=== PATIENT | female | born 1960 | race Caucasian/White ===

== ENCOUNTER 2022-10-08 13:18 | Outpatient (OUT) | payer OTHER, SELFPAY ==
--- NOTE | 2022-10-08 13:25 | MM_ITS ---
Patient: LELA LEE Exam Date: 10/08/2022 : 1960 Gender:F Ordering : PETR MORALEZ Admission #: [id number] Family : Order #: [id number] CLICK HERE TO VIEW EXAM RADIOLOGY REPORT PROCEDURE: MM TOMOSYNTHESIS SCREENING BI COMPARISON: MG MAMM SCREEN 3D KARMEN CAD, 09/20/2021. INDICATIONS: Screening Calculator Name NCI Breast Cancer Risk Assessment Tool 5 Year Breast Cancer Risk 1.00% Lifetime Breast Cancer Risk 4.60% Personal Breast Cancer No Personal Ovarian Cancer No Treatments None Family Cancers Mother with ovarian cancer at age 40; Mother with uterine, gb cancer at age 40. LOCATION: [facility] BREAST COMPOSITION: Heterogeneously dense,which may obscure small masses. FINDINGS: DIAGNOSTIC CATEGORY 2--BENIGN FINDING: RIGHT BREAST: No significant suspicious finding. Scattered benign-appearing lymph nodes are present. No significant change has occurred. LEFT BREAST: No significant suspicious finding. Scattered benign-appearing lymph nodes are present. No significant change has occurred. RECOMMENDATIONS: ROUTINE MAMMOGRAM AND CLINICAL EVALUATION IN 12 MONTHS. PLEASE NOTE: A NORMAL MAMMOGRAM DOES NOT EXCLUDE THE POSSIBILITY OF BREAST CANCER. A CLINICALLY SUSPICIOUS PALPABLE LUMP SHOULD BE BIOPSIED. Dictated by: Fausto Padron M.D. on 10/09/2022 at 07:56 Approved by: Fausto Padron M.D. on 10/09/2022 at 08:01
== END 2022-10-08 13:19 ==
LOC: MAMMO 13:19
PROVIDERS: PCP Nurse Practitioner; Visit Provider Nurse Practitioner
DX: Z12.31 Encounter for screening mammogram for malignant neoplasm of breast (principal); Z80.41 Family history of malignant neoplasm of ovary; Z80.49 Family history of malignant neoplasm of other genital organs
CPT/HCPCS: 77063; 77067

== ENCOUNTER 2023-04-04 08:41 | Outpatient (OUT) | payer OTHER, SELFPAY ==
[2023-04-04 09:10] LABS: Basophils Absolute Auto 0.1 10^3/uL (0.0-0.1); Basophils Percent Auto 0.9 % (0.2-2.0); Eosinophils Absolute Auto 0.1 10^3/uL (0.0-0.7); Eosinophils Percent Auto 1.6 % (0.9-7.0); Hemoglobin 12.8 g/dL (12.0-16.0); Immature Granulocytes Abs Auto 0.01 10^3/uL (0.00-0.03); Immature Granulocytes Pct Auto 0.1 % (0.0-0.5); Lymphocytes Absolute Auto 1.9 10^3/uL (1.2-3.8); Lymphocytes Percent Auto 27.7 % (20.5-60.0); Mean Corpuscular HGB Conc 30.5 g/dL (29.9-35.2); Mean Corpuscular Hemoglobin 26.7 pg (26.7-34.0); Mean Corpuscular Volume 87.5 fL (81.0-99.0); Mean Platelet Volume 8.9 fL (9.5-13.5); Monocytes Absolute Auto 0.5 10^3/uL (0.3-0.8); Monocytes Percent Auto 7.4 % (1.7-12.0); Neutrophils Absolute Auto 4.2 10^3/uL (1.4-6.5); Neutrophils Percent Auto 62.3 % (43.0-75.0); Platelet Count 387 10^3/uL (150-450); Red Cell Distribution Width 14.3 % (11.0-15.0); White Blood Count 6.7 10^3/uL (4.0-11.0)
[2023-04-04 09:28] LABS: Alanine Aminotransferase 28 U/L (14-59); Albumin Globulin Ratio 1.1; Albumin Level 3.7 g/dL (3.4-5.0); Alkaline Phosphatase 86 U/L (46-116); Anion Gap 10.7; Aspartate Amino Transferase 17 U/L (15-37); BUN Creatinine Ratio 21.9; Bilirubin Total 0.3 mg/dL (0.2-1.0); Calcium 8.8 mg/dL (8.5-10.1); Carbon Dioxide 30.6 mmol/L (21.0-32.0); Chloride 104 mmol/L (98-107); Cholesterol 180 mg/dL (<=200); Estimated GFR (African America >60 (>=60); Estimated GFR (Non-African Ame >60 (>=60); Globulin 3.3 g/dL; Glucose 98 mg/dL (74-106); HDL Cholesterol 36 mg/dL (40-60); Potassium 4.3 mmol/L (3.5-5.1); Sodium 141 mmol/L (136-145); Triglycerides 196 mg/dL (<=150); VLDL CHOLESTEROL 39.2 mg/dL
== END 2023-04-04 08:42 | disposition home or self-care (01) ==
LOC: LAB 08:43
PROVIDERS: PCP Nurse Practitioner; Visit Provider Nurse Practitioner
DX: Z00.00 Encounter for general adult medical examination without abnormal findings (principal)
CPT/HCPCS: 36415; 80053; 80061; 84443; 85025

== ENCOUNTER 2024-02-25 12:52 | Outpatient (OUT) | payer OTHER, SELFPAY ==
--- NOTE | 2024-02-25 13:02 | MM_ITS ---
Patient Name: LELA LEE MR#: [id number] : 1960 Exam Date: 02/25/2024 Ordering Doctor: PETR MORALEZ RADIOLOGY REPORT PROCEDURE: MM TOMOSYNTHESIS SCREENING BI COMPARISON: MG MAMM SCREEN 3D KARMEN CAD, 09/20/2021. MM TOMOSYNTHESIS SCREENING BI, 10/08/2022. INDICATIONS: Screening for malignant neoplasm Calculator Name NCI Breast Cancer Risk Assessment Tool 5 Year Breast Cancer Risk 1.00% Lifetime Breast Cancer Risk 4.40% Personal Breast Cancer No Personal Ovarian Cancer No Treatments None Family Cancers Mother with ovarian cancer at age 40; Mother with uterine, gb cancer at age 40. LOCATION: [facility] BREAST COMPOSITION: The breasts are heterogeneously dense,which may obscure small masses. FINDINGS: DIAGNOSTIC CATEGORY 2--BENIGN FINDING. NO CHANGE FROM COMPARISON. Scattered benign-appearing calcifications are present. Scattered benign-appearing lymph nodes are present. RIGHT BREAST: No significant suspicious finding. LEFT BREAST: No significant suspicious finding. RECOMMENDATIONS: ROUTINE MAMMOGRAM AND CLINICAL EVALUATION IN 12 MONTHS. PLEASE NOTE: A NORMAL MAMMOGRAM DOES NOT EXCLUDE THE POSSIBILITY OF BREAST CANCER. A CLINICALLY SUSPICIOUS PALPABLE LUMP SHOULD BE BIOPSIED. Dictated by: Smith Dela Cruz MD on 02/25/2024 at 14:10 Approved by: Smith Dela Cruz MD on 02/25/2024 at 14:16
--- OUTSIDE RECORDS SUMMARY | 2024-02-25 13:12 | XMS_ITS | CCD ---
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 clinical summary was aggregated from multiple sources. Caution should be exercised in using it in the provision of clinical care. This summary normalizes information from multiple sources, and as a consequence, information in this document may materially change the coding, format and clinical context of patient data. In addition, data may be omitted in some cases. CLINICAL DECISIONS SHOULD BE BASED ON THE PRIMARY CLINICAL RECORDS. [facility] [employer] [facility]. provides no warranty or guarantee of the accuracy or completeness of information in this document.
== END 2024-02-25 12:53 | disposition home or self-care (01) ==
LOC: MAMMO 12:52
PROVIDERS: PCP Nurse Practitioner; Visit Provider Nurse Practitioner
DX: Z12.31 Encounter for screening mammogram for malignant neoplasm of breast (principal); Z80.41 Family history of malignant neoplasm of ovary; Z80.8 Family history of malignant neoplasm of other organs or systems
CPT/HCPCS: 77063; 77067

== ENCOUNTER 2025-02-25 08:59 | Outpatient (OUT) | payer OTHER, SELFPAY ==
--- NOTE | 2025-02-25 | MM_ITS ---
Patient Name: LELA LEE MR#: [id number] : 1960 Exam Date: 02/25/2025 Ordering Doctor: GLENN [facility]REEM[facility] RADIOLOG[facility] REPORT PROCEDURE: MM TOMOSYNTHESIS SCREENING BI COMPARISON: MM TOMOSYNTHESIS SCREENING BI, 02/25/2024. MM TOMOSYNTHESIS SCREENING BI, 10/08/2022. MG MAMM SCREEN 3D KARMEN CAD, 09/20/2021. MG MAMM KARMEN SCRN W CAD DIG, 09/15/2012. INDICATIONS: screening for malignant neoplasm Calculator Name NCI Breast Cancer Risk Assessment Tool 5 Year Breast Cancer Risk 1.10% Lifetime Breast Cancer Risk 4.30% Personal Breast Cancer No Personal Ovarian Cancer No Treatments None Family Cancers Mother with ovarian cancer at age 40; Mother with uterine, gb cancer at age 40. LOCATION: [facility] BREAST COMPOSITION: The breasts are heterogeneously dense, which may obscure small masses. FINDINGS: RIGHT BREAST: No significant suspicious finding. LEFT BREAST: No significant suspicious finding. DIAGNOSTIC CATEGORY 1--NEGATIVE. RECOMMENDATIONS: ROUTINE MAMMOGRAM AND CLINICAL EVALUATION IN 12 MONTHS. Dictated by: Solomon Jones DO on 02/25/2025 at 12:05 Approved by: Solomon Jones DO on 02/25/2025 at 12:06
--- OUTSIDE RECORDS SUMMARY | 2025-02-25 09:04 | XMS_ITS | Clinical Summary ---
Author Organization [employer] [facility] tem Address [facility] [id number] [address] [place] [address] Care Team Providers Care Sock Boarder Name Role Phone Gissell Howard RESEARCH COMPUTING SPECIALIST-PROVIDER RELATIONS MANAGER Primary Care Provider + Allergies No known active allergies Medications MedicationSigDispense QuantityRefillsLast FilledStart DateEnd DateStatus MULTIVIT WITH MINERALS/LUTEIN (MULTIVITAMIN 50 PLUS ORAL) Take by mouth.Active calcium carbonate-vitamin D3 (CALCIUM 500 + D) 500 mg(1,250mg) -200 units per tablet Take 1 tablet by mouth 2 (two) times a day with meals. 180 tablet Active varicella-zoster gE vaccine, PF, (SHINGRIX) 50 mcg/0.5 mL suspension for reconstitution Indications:Need for shingles vaccineInject 0.5 mL into the appropriate muscle See Admin Instructions for 2 doses. 0.5 mL 2Active ferrous sulfate (FeroSuL) 325 (65 FE) MG tablet Indications:Iron deficiency anemia, unspecified iron deficiency anemia typetake 1 tablet by mouth twice a day - WITH MORNING AND EVENING MEALS 60 tablet 5Active levothyroxine (SYNTHROID, LEVOTHROID) 75 MCG tablet Indications:Acquired hypothyroidismTAKE 1 TABLET BY MOUTH IN THE MORNING BEFORE BREAKFAST ON AN EMPTY STOMACH 90 tablet 5Active lovastatin (MEVACOR) 20 mg tablet Indications:Mixed hyperlipidemiaTake 1 tablet (20 mg total) by mouth nightly. 90 tablet 5Active Active Problems ProblemNoted DateDiagnosed DateMicrocytic gfwwfs4204/14/2021Vitamin D deficiency 01/08/2019Asymptomatic /05/2019Annual physical exam01/08/2019Mixed zxplotrggexyhs92/05/2019Iron deficiency wnzgze4801/08/2019Allergic rhinitis 07/08/2018Normal routine physical jxopohjksxt89/08/6999Xnqpzycnjywu10/08/2017 Resolved Problems ProblemNoted DateDiagnosed DateResolved DateAdvice given about COVID-19 virus bmysqojxi85cute non-recurrent frontal oartmvtjj98/02/2020 02/01/2021Infection of nail bed of finger of left hand Encounters DateTypeDepartmentCare JoymRvdrtsfvuro38/28/2025Refill [facility] [address] [place] [address] Pooja Coello, DALILA Mixed hyperlipidemiafrom Last 3 Months Immunizations ImmunizationAdministration DatesNext DueInfluenza, Injectable, quadrivalent (PF) 03/13/2023,03/14/2021,01/20/2020 Family History Medical HistoryRelationNameCommentsDiabetesBrotherCancerFatherHeart disease FatherCancerMotherunknownDiabetesSister 1Hearing lossSister 1DiabetesSister 2 RelationNameStatusCommentsBrotherDeceasedFatherDeceased (Age 89)MotherDeceased (Age 44)Sister 1Sister 2 Social History Tobacco UseTypesPacks/DayYears UsedDateSmoking Tobacco: NeverSmokeless Tobacco: Never Tobacco Cessation:Counseling Given: No Alcohol UseStandard Drinks/WeekCommentsNot Currently0 (1 standard drink = 0.6 oz pure alcohol)very rarelyPHQ-2AnswerDate RecordedTotal Hgrhp3755Childcare AnswerDate UpqbvnvpTkdxektvpEfkfieh90/12/2019EmploymentAnswerDate Recorded YyfxnethmlUqlqlvd42/12/2019Hunger ScreeningAnswerDate RecordedWithin the past 12 months we worried whether our food would run out before we got money to buy more.Never True08/13/2024Within the past 12 months the food we bought just didn't last and we didn't have money to get more.Never True08/13/2024Purpose - LifeAnswerDate RecordedPurpose and direction in ltsvGgpmxsh15/11/2021 CommentsNoSex and Gender InformationValueDate RecordedSex Assigned at BirthNot on fileLegal JhhBykkmo89/06/2015 11:23 AM EDTGender IdentityNot on fileSexual OrientationNot on file Last Filed Vital Signs Vital SignReadingTime TakenCommentsBlood Fjxmyfrg846/8004 10:20 AM EDT Qgboe0594 10:20 AM MORSnlmufscvii77.8 ??C (98.2 ??F)08/13/2024 10:20 AM EDTRespiratory Njbw111808/13/2024 10:20 AM EDTOxygen Uikvpwpbko62%08/13/2024 10:20 AM EDTInhaled Oxygen Concentration--Cyqdql62.6 kg (173 lb 3.2 oz)08/13/2024 10:20 AM TOXWbjfmm237.5 cm (5' 2 )08/13/2024 10:20 AM EDTBody Mass Index31.68 08/13/2024 10:20 AM EDT Plan of Treatment DateTypeDepartmentCare Team (Latest Contact Info)Gukjfqyuwgl52/16/2026 9:20 AM EDTOffice Visit [facility] [address] [place] [address] Gissell Howard, RESEARCH COMPUTING SPECIALIST-PROVIDER RELATIONS MANAGER [address] [place] [address] Health MaintenanceDue DateLast DoneCommentsDTaP,Tdap and Td Vaccines (1 - Tdap) 07/29/1979Influenza Khnxgnr38/01/24088605/16/2023, 03/13/2023, 03/14/2021, Additional history zftzxdNkcztljax66, 10/08/2022, 09/20/2021, Additional history existsAdult BMI Follow Up Plan/dult BMI Odltjfeee96/02/2025Depression Bmtfmjwfq32/02/2025Tobacco Oysmmljvb23/4710Bhspswwiahw56/14/203207/, 11/16/2021, 11/02/2009Zoster (Shingles) HbzutvhIpguwoeym43/22/2024, 08/07/2023OVID-19 UzohovhAqtmjjiap10/11/2024, 03/13/2023, 05/20/2021, Additional history exists Medical Devices Not on file Procedures Procedure NamePriorityDate/TimeAssociated DiagnosisCommentsMAMM SCREENING BILATERAL W WKGPgoacmi88/22/2024 3:38 PM EDT Encounter for screening mammogram for malignant neoplasm of breast [employer] VLXCIGENNQWRtlvvcw37/14/2022 6:14 AM EDT from Last 3 Months or Most Recently Relevant to Health Maintenance Results * Mammography screening bilateral with CAD (02/25/2024 3:38 PM EDT)Anatomical RegionLateralityModalityBreastBilateralMammography Narrative Authorizing ProviderResult TypeResult StatusValeshakira Mckeon APRN-CNPIMG MAMMOGRAPHY ORDERABLESFinal Result * Colonoscopy Report (11/16/2021 6:14 AM EDT)Specimen (Source)Anatomical Location / LateralityCollection Method / VolumeCollection TimeReceived Time Narrative SYSTEMGENERATED, DOCUMENTATION - 11/16/2021 6:14 AM EDT This order has been auto-finalized for image and report archival in PACs. *For full report details, please reach out to your physician. ??Effective 09/20/20 this image will be visible to you in MyChart.* Authorizing ProviderResult TypeResult StatusMicedna Carson DOIMG OR IMG ORDERABLESFinal Result from Last 3 Months or Most Recently Relevant to Health Maintenance Insurance Care Teams Team MemberRelationshipSpecialtyStart DateEnd Date Gissell Howard, RESEARCH COMPUTING SPECIALIST-PROVIDER RELATIONS MANAGER [address] [place] [phone] PCP - GeneralFamily Medicine11/05/24
--- OUTSIDE RECORDS SUMMARY | 2025-02-25 09:04 | XMS_ITS | Clinical Summary ---
Author Organization [facility] Address [address] [place] [address] Phone Care Team Providers Care Manager Supply Chain Planning Name Role Phone Unavailable Primary Care Provider Unavailabl e Encounters DateTypeDepartmentCare TblsEtpnwtzqwcx22/26/2025Lab Requisition [facility] [address] [place] [address] 01/29/2025Lab Requisition [facility] [address] [place] [address] Kanchan Ordoñez MD Bone marrow donor01/28/2025Lab Requisition [facility] [address] [place] [address] Kanchan Ordoñez MD Bone marrow donorfrom Last 3 Months Social History Tobacco UseTypesPacks/DayYears UsedDateSmoking Tobacco: Never Assessed CommentsUnknownSex and Gender InformationValueDate RecordedSex Assigned at Not on fileLegal KycCdzwbj02/16/2025 4:41 PM EDTGender IdentityNot on fileSexual OrientationNot on file Plan of Treatment Health MaintenanceDue DateLast DoneCommentsCT Dibybdpheiob21/25/1961Colonoscopy 1960olorectal Cancer Hvommnboe73/25/1961FIT-DNA (Cologuard)1960FIT 1960HIV Yxcqkqpxu70/25/1961Lipid Panel1960 7837Gbkdfoycobhiq29/25/1961 Yearly Adult Qewidwmz20/25/1961MMR Vaccines (1 of 1 - Standard series)1961 Hepatitis C Sbpjilpmd64/25/1979Cervical Cancer Wulafcnbn94/25/1982HPV/Cotest 1981Pap Smear1981DTaP/Tdap/Td Vaccines (1 - Tdap)1982Mammogram 2000Pneumococcal Vaccine (1 of 1 - PCV)2010Zoster Vaccines (1 of 2) 2010Influenza Vaccine (#1)2024OVID-19 Vaccine (1 - 2024- season) 2025RSV High Risk: (Elderly (60+) or Population) (1 - 1-dose 75+ series)07/29/2035HIB VaccinesAged OutNo longer eligible based on patient's age to complete this topicHPV VaccinesAged OutNo longer eligible based on patient's age to complete this topicHepatitis A VaccinesAged OutNo longer eligible based on patient's age to complete this topicHepatitis B VaccinesAged OutNo longer eligible based on patient's age to complete this topicIPV VaccinesAged OutNo longer eligible based on patient's age to complete this topicMeningococcal VaccineAged OutNo longer eligible based on patient's age to complete this topic Rotavirus VaccinesAged OutNo longer eligible based on patient's age to complete this topic Procedures Procedure NamePriorityDate/TimeAssociated DiagnosisCommentsHLA DNA TYPE PANEL Dwegrcs9601/28/2025 12:00 AM EDT Bone marrow donor from Last 3 Months Results * HLA DNA Type Panel (01/28/2025 12:00 AM EDT)ComponentValueRef RangeTest Method Analysis TimePerformed AtPathologist SignatureHLA-A,B,C High Resolution Typing 01/29/2025 2:44 PM EDTUH HLA LABHLA-DRB1 High Resolution Elfgkt2701/29/2025 2:44 PM EDTUH HLA LABHLA-DQB1 High Resolution Nbiwka1701/29/2025 2:44 PM EDTUH HLA LABHLA-DPB1 High Resolution Gvmmvt3701/29/2025 2:44 PM EDTUH HLA LABHLA Results See Family HLA Type Report for louis mancuso01/29/2025 2:44 PM EDTUH HLA LAB Specimen (Source)Anatomical Location / LateralityCollection Method / Volume Collection TimeReceived TimeBloodVenous blood specimen / Xfbrivb5301/28/2025 01/29/2025 2:37 PM EDT Narrative HLA LAB - 01/29/2025 2:44 PM EDT Test performed at: [facility], 6th Floor [id number] [place] [address] Test performed at: [facility], 6th Floor [id number] [id number] Authorizing ProviderResult TypeResult StatusRechristine TONEY BLOOD ORDERABLESFinal ResultPerforming OrganizationAddressCity/State/ZIP CodePhone Number [facility] [address] [id number] from Last [address] [employer] [address] [employer] [place] [phone] [place] [address] [place] [address] [place] [address]
--- OUTSIDE RECORDS SUMMARY | 2025-02-25 09:06 | XMS_ITS | CCD ---
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 Comment on above:Performed By: #### CMP #### [facility] [address] [address] [address] Iris BriggsProtein [Mass/Vol]6.8 g/dLNormal6.1-8.2[facility] Comment on above:Performed By: #### CMP #### [facility] [address] [place] [address] Dr. Iris BriggsSodium [Moles/Vol]136 mmol/LCritically njy462-537Cjd [facility] HospitalComment on above:Performed By: #### CMP #### [facility] [address] [place] [address] Dr. Iris Christiansen nitrogen [Mass/Vol]9.0 mg/dLNormal7.0-17.0The [facility] HospitalComment on above:Performed By: #### CMP #### [facility] [address] [place] [address] Dr. Iris Christiansen nitrogen/Creatinine [Mass ratio]13.8 mg/mgNormalThe [facility] HospitalComment on above:Performed By: #### CMP #### [facility] [address] [place] [address] Dr. Iris Adams AUTO DIFFon 19-10-8396EUOC #0.1 103/ulNormal0.0-0.1The [facility] HospitalComment on above:Performed By: #### CBC #### [facility] [address] [place] [address] Dr. Iris BriggsBasophils/100 WBC (Bld)0.8 %Normal0.2-2.0[facility] Comment on above:Performed By: #### CBC #### [facility] [address] [place] [address] Dr. Iris Aldana #0.1 103/ulNormal0.0-0.7The [facility] HospitalComment on above: Performed By: #### CBC #### [facility] [address] [place] [address] Dr. Iris Wootenosinophils/100 WBC (Bld)1.7 %Normal0.9-7.0[facility] Comment on above:Performed By: #### CBC #### [facility] [address] [place] [address] Dr. Iris Wootenrythrocyte distribution width (RBC) [Ratio]18.1 %Critically high 11.0-15.0The [facility] HospitalComment on above:Performed By: #### CBC #### [facility] [address] [place] [address] Dr. Iris BriggsHematocrit (Bld) [Volume fraction]31.2 %Critically low36.0-48.0 The [facility] HospitalComment on above:Performed By: #### CBC #### [facility] [address] [place] [address] Dr. Iris BriggsHemoglobin (Bld) [Mass/Vol]8.7 g/dLCritically low12.0-16.0The [facility] HospitalComment on above:Performed By: #### CBC #### [facility] [address] [place] [address] Dr. Iris BriggsIG #0.03 10e3/ulNormal0.00-0.03The [facility] HospitalComment on above:Performed By: #### CBC #### [facility] [address] [place] [address] Dr. Iris Saxena %0.5 %Normal0.0-0.5The [facility] HospitalComment on above: Performed By: #### CBC #### [facility] [address] [place] [address] Dr. Iris Singh #1.4 103/ulNormal1.2-3.8The [facility] HospitalComment on above:Performed By: #### CBC #### [facility] [address] [place] [address] Dr. Iris Breenmphocytes/100 WBC (Bld)23.4 %Opxpao88.5-60.0The [facility] HospitalComment on above:Performed By: #### CBC #### [facility] [address] [place] [address] Dr. Iris ReneUAL DIFF REQNONormalThe [facility] HospitalComment on above: Performed By: #### CBC #### [facility] [address] [place] [address] Dr. Iris Rangel (RBC) [Entitic mass]20.0 pgCritically low26.7-34.0The [facility] HospitalComment on above:Performed By: #### CBC #### [facility] [address] [place] [address] Dr. Iris CoeHC (RBC) [Mass/Vol]27.9 g/dLCritically low29.9-35.2The [facility] HospitalComment on above:Performed By: #### CBC #### [facility] [address] [address] [address] Iris CoeV (RBC) [Entitic vol]71.9 fLCritically low81.0-99.0The [facility] HospitalComment on above:Performed By: #### CBC #### [facility] [address] [place] [address] Dr. Iris Bosch #0.4 103/ulNormal0.3-0.8The [facility] HospitalComment on above:Performed By: #### CBC #### [facility] [address] [place] [address] Dr. Iris Wintersocytes/100 WBC (Bld)7.0 %Normal1.7-12.0[facility] Comment on above:Performed By: #### CBC #### [facility] [address] [place] [address] Dr. Iris Cortes #4.0 103/ulNormal1.4-6.5The [facility] HospitalComment on above:Performed By: #### CBC #### [facility] [address] [place] [address] Dr. Iris Sequeirautrophils/100 WBC (Bld)66.6 %Laueyv87.0-75.0The [facility] HospitalComment on above:Performed By: #### CBC #### [facility] [address] [place] [address] Dr. Iris Orrlet mean volume (Bld) [Entitic vol]9.1 fLCritically low 9.5-13.5The [facility] HospitalComment on above:Performed By: #### CBC #### [facility] [address] [place] [address] Dr. Iris LimaT516 103/ulCritically zxqf905-978Acv [facility] HospitalComment on above:Performed By: #### CBC #### [facility] [address] [address] [address] Iris BriggsRBC4.34 106/ulNormal4.20-5.40[facility] CenterCommunson healthcare [facility] on above:Result Comment: Microcytosis 3+ Hypochromasia 3+ Anisocytosis 2+Performed By: #### CBC #### [facility] [address] [address] [address] Iris BriggsWBC6.0 103/ulNormal4.0-11.0The [facility] HospitalComment on above: Performed By: #### CBC #### [facility] [address] [place] [address] Dr. Iris BriggsGLYCOHEMOGLOBIN A1Con 86-15-2255RDS RECOMMENDATIONADA THERAPEUTIC TARGET 6.0 - 7.0 ACTION SUGGESTED > 7.0Ad[facility] County HospitalComment on above:Performed By: #### A1C #### [facility] [address] [place] [address] Dr. Iris BriggsGlucose [Mass/Vol]126 mg/dLNoFostoria City HospitalComment on above:Performed By: #### A1C #### [facility] [address] [place] [address] Dr. Iris BriggsHbA1c (Bld) [Mass fraction]6.0 %Normal<=6.0[facility] Comment on above:Performed By: #### A1C #### [facility] [address] [place] [address] Dr. Iris BriggsLIPID PROFILEon 30-38-6406WPBD-HDL RATIO NORMSEE BELOWAdams County HospitalComment on above:Result Comment: 3.3 - 4.4 LOW RISK 4.4 - 7.1 AVERAGE RISK 7.1 - 11.0 MODERATE RISK >11.0 HIGH RISKPerformed By: #### LIPID, TSH #### [facility] [address] [place] [address] Dr. Iris BriggsCholesterol [Mass/Vol]163 mg/dLNormal<=200The [facility] Comment on above:Performed By: #### LIPID, TSH #### [facility] [address] [place], [place] [address] Dr. Iris BriggsCholesterol in HDL [Mass/Vol]40 mg/dLAdams County Hospital Comment on above:Performed By: #### LIPID, TSH #### [facility] [address] [address] [address] Iris BriggsCholesterol in LDL [Mass/Vol]100.2 mg/dLAdams County HospitalComment on above:Performed By: #### LIPID, TSH #### [facility] [address] [place] [address] Dr. Iris Silvestreesterreno.total/Cholesterol in HDL [Mass ratio]4.1 {ratio} NormalUniversity Hospitals Cleveland Medical CenterComment on above:Performed By: #### LIPID, TSH #### [facility] [address] [place] [address] Dr. Iris Brown NORMAL> or = 60 mg/dl - LOW CARDIOVASCULAR RISK <40 mg/dl - HIGH CARDIOVASCULAR RISKNoFostoria City HospitalComment on above:Performed By: #### LIPID, TSH #### [facility] [address] [place] [address] Dr. Iris Vazquez CALC NORMALSEE BELOWAdams County HospitalComment on above:Result Comment: <100 mg/dl OPTIMAL 100 - 129 mg/dl NEAR OR ABOVE OPTIMAL 130 - 159 mg/dl BORDERLINE HIGH 160 - 189 mg/dl HIGH >190 mg/dl VERY HIGH Performed By: #### LIPID, TSH #### [facility] [address] [place] [address] Dr. Iris BriggsTriglyceride [Mass/Vol]114 mg/dLNormal<=150[facility] Comment on above:Performed By: #### LIPID, TSH #### [facility] [address] [place] [address] Dr. Iris BriggsVLDL CALC22.8 mg/dLNoFostoria City HospitalComment on above: Performed By: #### LIPID, TSH #### [facility] [address] [place] [address] Dr. Iris Wilburn 15-64-5847IKR9.095 uIU/mLNormal0.470-4.680[facility] CenterComment on above:Performed By: #### LIPID, TSH #### [facility] [address] [id number] Iris Hodges [facility] SystemComment on above: Result Comment: <0.34 UIU/ml HYPERTHYROID 0.34-5.60 UIU/ml EUTHYROID >5.60 UIU/ml HYPOTHYROIDPerformed By: #### LIPID, TSH #### [facility] [address] [place], [place] [address] Dr. Iris BriggsXR wrist RT min 3V*on 89-94-2725MK wrist RT min 3V*[facility] [address] [place] [address] XRay Report Signed Patient: Alejandra Lee MR#: [id number] : 1960 Acct:[id number] Age/Sex: 60 / F ADM Date: 01/25/21 [facility] Attending Dr: Jennifer HARRISON Ordering Provider: Jennifer HARRISON Date of Service: 01/25/21 XR/XR elbow RT min 3V*: RIGHT ARM PAIN ([id number]) XR/XR forearm RT 2V*: RIGHT ARM PAIN ([id number]) XR/XR wrist RT min 3V*: RIGHT ARM PAIN ([id number]) XR/XR hand RT min 3V*: RIGHT ARM [...] Ken Martin M.D.01/25/2021 5:08 PM Dictation Location: [place] [address] Transcribed By: [facility] 01/25/21 170 Dictated By: Ken Martin MD 01/25/211657 Signed By: 01/25/211707NoWexner Medical Center Vital Signs Date TimeVital SignValuePerforming RooklxqxkFsyoxspg32-96-5394 10:20-0400Body ecjfux640.5 cmValeshakira Mckeon JASONNORTH [facility]AMS [facility] Work Phone: [facility] [employer] Mwkhds26-45-3049 10:20-0400Body mass index (BMI) [Ratio]31.68 kg/j3NrcrachPetr Mckeon SPRAYER MACHINENORTH ADAMS REGIONAL HOSPITAL Work Phone: [facility] Kucsfa05-60-3019 10:20-0400Body psalxyxgqwv71.2 [degF]Petr Mckeon SPRAYER MACHINENORTH ADAMS [facility]ION[facility]PITAL Work Phone: [facility] [employer] Qsnuyt75-42-4518 10:20-0400Body qnidnn66.56 kgPetr Mckeon SPRAYER MACHINENORTH ADAMS [facility] Work Phone: [facility] [employer] Sykerj90-55-1139 10:20-0400Diastolic blood mm[Hg]Petr Mckeon SPRAYER MACHINE-LOOP PULLER Work Phone: [facility] [employer] Vqjwdo49-07-8184 10:20-0400Heart rate 97 /minPetr Mckeon SPRAYER MACHINE-[employer]OP P[employer]ER Work Phone: [facility]04-10-2025 10:20-0400 Respiratory rate18 /minPetr Mckeon SPRAYER MACHINE-[employer]OP P[employer]ER Work Phone: [facility]04-10-2025 10:20-9344ExJ1% (BldA) [Mass fraction]97 %Petr Mckeon SPRAYER MACHINE[employer]OP P[employer]ER Work Phone: [facility] [employer] Trnufq68-79-4315 10:20-0400Systolic blood ltrestat120 mm[Hg]Petr Mckeon APRN-LOOP PULLER Work Phone: [facility]06-20-2024 23:04-0400Body ukahyfoojsg19.88 [degF]Royainn Dokken [address]06-20-2024 23:04-0400 Diastolic blood uganjmpu66 mm[Hg]Nicoylinn Dokken [address] [place], [place] 3787706-20-2024 23:04-0400Heart fhjt919 /minNicoylinn Dokken [address] [place], [place] [address]87706-20-2024 23:04-0400 Respiratory rate18 /minNcioylinn Dokken [address] [place], [place] 3787706-20-2024 23:04-5375NtW0% (BldA) [Mass fraction]98 %Kaylinn Dokken [address] [place], [place] [address]87706-20-2024 23:04-0400 Systolic blood vowonlbh886 mm[Hg]Kaylinn Dokken [address] [place], [place] [address]6-20-2024 22:10-0400Body damdonsbrsr06.24 [degF]Kaylinn Dokken [address] [place], [place] [address]6-20-2024 22:10-0400 Diastolic blood pcmzvytu14 mm[Hg]Kaylinn Dokken [address] [place], [place] [address]6-20-2024 22:10-0400Heart qnbu849 /minKaylinn Dokken [address] [place], [place] [address]6-20-2024 22:10-0400 Respiratory rate18 /minKaylinn Dokken [address] [place], [place] 499[address]6-20-2024 22:10-6344LbC6% (BldA) [Mass fraction]96 %Kaylinn Dokken [address] [place], [place] 499[address]6-20-2024 22:10-0400 Systolic blood dcuuabil897 mm[Hg]Kaylinn Dokken [address] [place], [place] [address]6-20-2024 21:55-0400Body ttbcajaqims13.24 [degF]Kaylinn Dokken [address] [place], [place] [address]6-20-2024 21:55-0400 Diastolic blood pqflorse15 mm[Hg]Kaylinn Dokken [address] [place], [place] [address]6-20-2024 21:55-0400Heart mxzh303 /minKaylinn Dokken [address] [place], [place] [address]6-20-2024 21:55-0400 Respiratory rate18 /minKaylinn Dokken [address] [place], [place] [address]6-20-2024 21:55-7873SzZ6% (BldA) [Mass fraction]95 %Kaylinn Dokken [address] [place], [place] [address]6-20-2024 21:55-0400 Systolic blood ydvtnwdu201 mm[Hg]Irving Aguirre [facility] Encounters Encounter DateEncounter TypeCare ProviderFacilityStart: 12-31-2024 End: 71-23-5054QtaaedJayg Cooper [facility] HOSPITALProMedica Physicians Internal Medicine - Family MedicineComment on above:Mixed hyperlipidemiaStart: 10-01-2024 End: 71-31-1275WbfcsfKfugnsqLeeanne CHAO Work Phone: [facility] Internal Medicine - Family MedicineComment on above:Acquired hypothyroidismStart: 08-13-2024 End: 46-36-5274xjnwaajjngNKSCSHP J Wright-[facility]terson Medical Centertart: 26-57-0141Pvkpxezuq for general adult medical examination without abnormal findingsThe Surgical Hospital at Southwoodstart: 08-13-2024 End: 05-99-6271Kgnjpvr encounter procedureValeshakira CHAO Work Phone: [facility] Work Phone: Start: 08-13-2024 End: 91-90-6451Fcpwrwdw preventive med est patient 40-64yrsPetr CHAO Work Phone: [facility] Internal Medicine - Family MedicineComment on above:Annual physical exam (Primary Dx); Acquired hypothyroidism; Mixed hyperlipidemia; Blood tests for routine general physical examination; Iron deficiency anemia, unspecified iron deficiency anemia type; Encounter for screening mammogram for malignant neoplasm of breastStart: 08-13-2024 End: 74-51-6890Pscgnwrl examinationPetr CHAO Work Phone: [facility] HospitalM[employer] Hospitaltart: 08-13-2024 End: 82-90-1005ammdkzgurxIRSWSCW J CASTILLOTanner [facility] P[facility] Start: 04-27-2024 End: 47-16-9997BdkdtnBitrx Postell [facility] HospitalMedica Physicians Internal Medicine - Family MedicineComment on above:Iron deficiency anemia, unspecified iron deficiency anemia typeStart: 02-26-2024 End: 37-15-5806Apzwpzraf encounterBeacmc healthcare system glenbeigh ForMercy Health – The Jewish HospitalProMedica Physicians Internal Medicine - Family MedicineStart: 01-08-2024 End: 47-74-4941VhxreqWfjqe Daniela [facility] Internal Medicine - Family MedicineComment on above:Iron deficiency anemia, unspecified iron deficiency anemia type; Acquired hypothyroidism; Mixed hyperlipidemiaStart: 10-24-2023 End: 14-11-5380Mtmtpbxzq department patient visitIrving Aguirre [facility] Start: 09-20-2021 End: 65-70-6082dqxkmoyhmvQUNSPZI CASTILLOFacility:Q4Jxgtq: 89-97-0004Swtxosjqz for general adult medical examination without abnormal findingsADELSHAKIRA MCKEON [facility] Hospitaltart: 04-26-2021 End: 24-86-5632vivpwhbucyCIIXHAL CASTILLOFacility:O6Tkaoy: 04-26-2021 End: 20-73-0383Rshxsbair for general adult medical examination without abnormal findingsVALERIE CASTILLOFacility:Q1Hqunj: 03-18-2021 End: 35-84-4724kymenkdqbdUJSESXB CASTILLOFacility:Z7Lujog: 91-57-3843Wpuzktc encounter procedureMisty Daniela [facility] Pardeetart: 01-08-2019 Encounter for general adult medical examination without abnormal findingsHCA [facility]ulatory PPGStart: 84-69-0139Rmrwvint examinationMisty Daniela [facility] Procedures DateProcedureProcedure DetailPerforming ClinicianStart: 40-61-7207Jafez depression screening assessmentValeshakira Mckeon APRNNORTH ADAMS REG[facility]AL [facility]OSP[facility] Work Phone: Start: 09-09-5208DhjttkdiqsqGwirhkt Forrider CMAStart: 73-34-0115Kytav depression screening assessmentMisty Daniela CMAStart: 76-92-3249JyjcykhxcgsMwreu Daniela CMAStart: 49-64-6929IednxernsbkWdjck Daniela [employer]FETERIA CASHIER Plan of Treatment DateCare ActivityDetailAuthorStart: 11-34-5143Hpmxfcwmt for malignant neoplasm of colonColonoscopyTrinity Health System East Campus SystemStart: 08-19-2025 End: 13-86-8852Vzlncxz encounter /16/2026 9:20 AM EDT Office Visit [facility] [address] [place] [address] Gissell Howard, SPRAYER MACHINE-LOOP PULLER [address] [place] [address] [facility] MedicineStart: 08-16-2025 End: 92-13-8216Hpmrizo encounter tjvbsibsx93/13/2026 9:40 AM EDT Office Visit [facility] [address] [place] [address] Petr Mckeon, SPRAYER MACHINE-LOOP PULLER [address] [place] [address] [facility] MedicineStart: 13-01-5064Wffmz BMI Follow Up PlanAdult BMI Follow Up PlanNovant Health New Hanover Regional Medical Centertart: 99-57-3499Hauox BMI ScreeningAdult BMI ScreeningTrinity Health System East Campus SystemStart: 21-41-3148Qdwnbbadsq ScreeningDepression ScreeningTrinity Health System [facility] Campus SystemStart: 65-11-5919Iidjjij ScreeningTobacco ScreeningTrinity Health System East Campus SystemStart: 02-25-2025 End: 51-89-9180AWE Breast - bilateral screeningMammography screening bilateral with CAD Imaging Routine Encounter for screening mammogram for malignant neoplasm of breast Expected: 02/25/2025 (Approximate), Expires: 08/13/2025 [facility] CenterComment on above:Expected: 02/25/2025 (Approximate), Expires: 08/13/2025Start: 40-07-7439Iukblqmzh for malignant neoplasm of breast MammogramNovant Health New Hanover Regional Medical Centertart: 17-14-8661Wnuifqkqe vaccinationInfluenza VaccineTrinity Health System East Campus SystemStart: 77-65-1790Dmtof BMI Follow Up PlanAdult BMI Follow Up PlanNovant Health New Hanover Regional Medical Centertart: 63-63-4748Jzteb BMI ScreeningAdult BMI ScreeningTrinity Health System East Campus SystemStart: 67-01-2748Cuxhqqkgdw Screening Depression ScreeningTrinity Health System East Campus SystemStart: 57-00-7942Yhztzfo Screening Tobacco ScreeningTrinity Health System East Campus SystemStart: 45-92-5665POGHE-19 Vaccine ( season)COVID-19 Vaccine ( season)[facility] Start: 96-08-2318Sortpeptj vaccinationInfluenza VaccineUC Medical Center Start: 18-87-5714Hiqygozeq for malignant neoplasm of breastMammogramNovant Health New Hanover Regional Medical Centertart: 42-23-4703Qxargtxjljhmkk of varicella zoster vaccineZoster (Shingles) Vaccine (1 of 2)[facility]: 03-69-6004MRaK,Tdap and Td Vaccines (1 - Tdap)DTaP,Tdap and Td Vaccines (1 - Tdap)[facility] End: 12-01-2959RDF W Auto Differential panel - BloodCBC auto differential Lab Routine Blood tests for routine general physical examination 1 Occurrences starting 08/13/2024 until 08/13/2025[facility] CenterComment on above:1 Occurrences starting 08/13/2024 until 08/13/2025 End: 71-55-2053Vnlbhaknpjnvv metabolic 2000 panel - Serum or PlasmaComprehensive metabolic panel Lab Routine Blood tests for routine general physical examination 1 Occurrences starting 08/13/2024 until 08/13/2025[employer] Work Phone: Comment on above:1 Occurrences starting 08/13/2024 until 08/13/2025 End: 75-93-3956Pxqyn 1996 panel - Serum or PlasmaLipid profile Lab Routine Blood tests for routine general physical examination 1 Occurrences starting 08/13/2024 until 08/13/2025[facility] above:1 Occurrences starting 08/13/2024 until 08/13/2025 End: 97-04-4181Tlzftlisxhq [Units/volume] in Serum or PlasmaTSH Lab Routine Blood tests for routine general physical examination 1 Occurrences starting 08/13/2024 until 08/13/2025[facility] CenterComment [facility] above:1 Occurrences starting 08/13/2024 until 08/13/2025 Immunizations Immunization DateImmunizationNotesBeebe Healthcare DkcchnapYtzuqocy79-77-3819tivosqoap virus vaccine, unspecified formulationPetr CHAO Work Phone: [facility] CenterYnnfoy50-65-1830xzzzumesv, injectable, quadrivalent, preservative freeMisty Daniela [facility]11-08-2023influenza virus vaccine, unspecified formulationMisty Daniela [facility] CenterGzbfie26-25-3332adhieyxgj-okkqra gE vaccine, PF, (SHINGRIX) 50 mcg/0.5 mL suspension for reconstitutionMisty Daniela [facility]11-09-2021influenza, injectable, quadrivalent, preservative freeMisty Daniela [facility]04-02-2021SARS-CoV-2 (COVID-19) mRNA BNT-162b2 Selina Aguirre [facility] CenterComment on above:Reason for Medication: Rkpgolrnxrz13-77-6025BTNS-AuO-4 (COVID-19) mRNA BNT-162b2 namrata Aguirre [facility] CenterComment on above:Reason for Medication: Rvuokgspxzm37-11-8756xhohnogjq, injectable, quadrivalent, preservative freeMisty Daniela [facility] Payers DatePayer CategoryPayerPolicy [id number] Care O (unspecified)[id number] [facility] CHO[facility] IFEANYI [id number] 2023- Present [phone] [address] [place] [address] [id number] 2.16.840.1.719761.3.57[id number] 2.16.840.1.537129.3.57[id number] 2.16.840.1.727268.3.57[id number] 2.16.840.1.292664.3.57[id number] 2.16.840.1.969384.3.57[id number] 2.16.840.1.292319.3.57[id number] 2.16.840.1.784593.3.57[id number] 2.16.840.1.333809.3.57[id number] Social History DateTypeDetailFacilityTobacco smoking statusPomerene Hospitaltart: 06-16-2020 End: 82-89-5177Bcz Assigned At BirthFemalUniversity Hospitals Ahuja Medical Centertart: 44-08-8454Iywwvrm smoking status NHISNever smoked tobaccoTrinity Health System East Campus System Start: 55-46-1708Halkwks use and exposureSmokeless tobacco non-userProMediCloud County Health Centertart: 03-26-2023 End: 80-87-1993Kvtcugrxu beverage intakeEx-drinker (finding)[facility]art: 06-16-2020 End: 96-59-2641Jprvrcn of Social functionUC Medical CenterAdolescent depression screening vgjztdcnvy0UikXfcpaj[address] [place], [place] [address]tart: 53-31-7889Knjbeqc Commentvery rarelyNov[facility] Medical Centertart: 99-81-9022Dos assigned at Not on fileNovant Health New Han[facility] Regional Medical Centertart: 55-20-7294EyfGxppmx (finding)[facility] Functional Status WydkDlcowanrjwPlxjklJmcrbbye19-63-2694Tqflzzwxcn StatusN/AFzoila [facility] Clinical Notes 10-24-2023 to 08-13-2024 Note Date & FhqbVrvvEvotprcz12-97-7227 History of Present illness Narrative* Petr Mckeon, [employer] M[employer]INE[employer] - 08/13/2024 10:20 AM EDT Images from the original note were not included. [address] [facility] [address] SUBJECTIVE: Patient ID: Alejandra eLe is a 64 y.o. female. Chief Complaint Patient presents with Annual Exam Presents for annual physical exam Is now retired from [employer]. Stays active. Enjoys following activity of bald eagles in the area. Annual Exam Pertinent negatives include no chest pain, chills or fever. The following portions of the patient's history were reviewed and updated as appropriate: allergies, current medications, past family history, past medical history, past social history, past surgicalhistory and problem list. Past Surgical History: Procedure Laterality Date COLONOSCOPY N/A 11/16/2021 Performed by Butch Carson DO at [facility] unknown iguinal HYSTERECTOMY 2009 complete Past Medical History: Diagnosis Date Acute non-recurrent frontal sinusitis 05/07/2019 Immunization History Administered Date(s) Administered COVID-19, mRNA, LNP-S, PF, 30mcg/0.3mL Dose 07/15/2020, 08/05/2020, 05/20/2021 Covid-19, Mrna, Lnp-s, Pf,abilio-sucrose,30 Mcg/0.3ml Fall23 03/13/2023 Covid-19,mrna, Lnp-s, Pf, 50mcg/0.5ml 12+ 03/16/2024 Influenza, Injectable, quadrivalent (PF) 01/20/2020, 03/14/2021, 03/13/2023 REVIEW OF SYSTEMS: Review of Systems Constitutional: Negative for chills and fever. HENT: Negative. Eyes: Negative for visual disturbance. Respiratory: Negative for chest tightness and shortness of breath. Cardiovascular: Negative for chest pain and palpitations. Gastrointestinal: Negative. Endocrine: Negative. Genitourinary: Negative for menstrual problem and pelvic pain. Musculoskeletal: Negative. Skin: Negative. Allergic/Immunologic: Negative. Neurological: Negative for syncope and facial asymmetry. Hematological: Does not bruise/bleed easily. Psychiatric/Behavioral: Negative. PHYSICAL EXAMINATION: Vitals: 08/13/24 1020 BP: 130/80 BP Site: Left Arm BP Postition: Sitting BP CUFF SIZE: M (9-13 inches) Pulse: 97 Resp: 18 Temp: 36.8 C (98.2 F) TempSrc: Oral SpO2: 97% Weight: 78.6 kg (173 lb 3.2 oz) Height: 157.5 cm (5' 2 ) Patient noted to have elevated BMI and the following intervention(s) were applied: encouragement toexercise. Physical Exam Vitals and nursing note reviewed. Constitutional: General: She is not in acute distress. Appearance: She is well-developed. She is not diaphoretic. HENT: Head: Normocephalic and atraumatic. Right Ear: Tympanic membrane and external ear normal. Left Ear: Tympanic membrane and external ear normal. Nose: Nose normal. Mouth/Throat: Mouth: Mucous membranes are moist. Pharynx: No oropharyngeal exudate. Eyes: General: Right eye: No discharge. Left eye: No discharge. Conjunctiva/sclera: Conjunctivae normal. Pupils: Pupils are equal, round, and reactive to light. Neck: Thyroid: No thyromegaly. Vascular: No JVD. Cardiovascular: Rate and Rhythm: Normal rate and regular rhythm. Heart sounds: Normal heart sounds. No murmur heard. No friction rub. No gallop. Pulmonary: Effort: Pulmonary effort is normal. Breath sounds: Normal breath sounds. Abdominal: General: Bowel sounds are normal. There is no distension. Palpations: Abdomen is soft. There is no mass. Tenderness: There is no abdominal tenderness. Musculoskeletal: General: Normal range of motion. Cervical back: Normal range of motion and neck supple. Lymphadenopathy: Cervical: No cervical adenopathy. Skin: General: Skin is warm and dry. Capillary Refill: Capillary refill takes less than 2 seconds.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
== END 2025-02-25 09:00 | disposition home or self-care (01) ==
LOC: MAMMO 09:02
PROVIDERS: PCP Nurse Practitioner Family; Visit Provider Nurse Practitioner Family
DX: Z12.31 Encounter for screening mammogram for malignant neoplasm of breast (principal); Z80.41 Family history of malignant neoplasm of ovary; Z80.8 Family history of malignant neoplasm of other organs or systems
CPT/HCPCS: 77063; 77067